=== PATIENT | female | born 1975 | race Caucasian/White ===

== ENCOUNTER 2019-10-13 10:39 | Emergency (ER) | payer OTHER, SELFPAY ==
[2019-10-13 10:50] VITALS: BP 149/91; PULSE 107; RESP 16; TEMP 36.5; O2SAT 98
--- NOTE | 2019-10-13 10:56 | ED.URI ---
HPI - URI/Sore Throat General Chief Complaint: Upper Respiratory Infection Stated Complaint: pos sinus infection Time Seen by Provider: 10/13/19 10:42 Source: patient Mode of arrival: ambulatory Limitations: no limitations History of Present Illness HPI Narrative: 44-year-old female presents to urgent care with complaints of sinus pressure, nasal congestion, nonproductive cough and bilateral ear pressure for the past week. Patient takes Mirna and Flonase daily due to history of allergies. Patient also has been taking [id number] sinus tablets with little relief. Patient denies sick contacts. Patient denies recent travel. Patient is a non-smoker. Patient denies fever, bites, chills, nausea, vomiting, diarrhea, shortness of breath or wheezing. MD elicited complaint: cough, nasal congestion and sinus pain Onset (ago): week(s) (1) Severity: mild Able to tolerate fluids by mouth: Yes Exacerbating factors: nothing Relieving factors: nothing Associated symptoms: nasal congestion, cough and ear pain Treatments prior to arrival: cold medicine Related Data Home Medications Medication Instructions Recorded Confirmed alprazolam 0.25 mg PO BID 10/13/19 10/13/19 fluoxetine 20 mg PO DAILY 10/13/19 10/13/19 Allergies Allergy/AdvReac Type Severity Reaction Status Date / Time No Known Allergies Allergy Verified 10/13/19 10:44 Review of Systems Constitutional: Constitutional: Denies chills, Denies fever(s) and Denies weakness ENT: Denies dysphagia, Denies vertigo, Denies dizziness, Denies epistaxis, Reports nasal congestion and Denies sore throat Cardiovascular: Cardiovascular: Denies chest pain, Denies rapid heart rate, Denies radiating jaw, neck or arm pain and Denies slow heart rate Respiratory: Respiratory: Denies chest congestion, Reports cough, Denies dyspnea and Denies wheezing Gastrointestinal: Gastrointestinal: Denies abdominal pain, Denies bloating, Denies constipation, Denies diarrhea, Denies nausea and Denies vomiting Integumentary/Breasts: Skin/Breast: Denies rash Neurologic: Denies vertigo, Denies focal weakness and Denies numbness PMFSH Past Medical History Medical History (Updated 10/13/19 @ 11:03 by Tiff Calderón APRN) Allergies Social History Social History (Updated 10/13/19 @ 10:58 by Tiff Calderón APRN) Smoking status: Never smoker Gender identity (if verbalized by the patient): Female Exam Const: General: healthy appearing, no acute distress and alert Orientation/consciousness: patient oriented x3 HENMT: Head: normal to inspection Ears: external ears normal General nose exam: Normal external nose present Face and sinus: sinus tenderness frontal Mouth: Yes lip normal, Yes moist mucous membranes and Yes Abnormal oral and palatal mucosa present Throat: posterior oropharynx normal and uvula midline Other: nasal congestion noted -- left is worse than right. Eyes: Pupils: Equal, round and reactive pupils present Neck: Neck: normal visual inspection Resp: Effort & Inspection: normal respiratory effort, not labored and not tachypneic Auscultation: clear to auscultation bilaterally, no crackles and no wheezes Cardio: Rate: regular rate, not bradycardic and not tachycardic Rhythm: regular rhythm and regular rhythm Skin: General skin exam: normal color, no jaundice and no pallor Rashes: no rashes Neuro: General: patient oriented x3, moves all extremities and no meningeal signs Extrem: General: normal to inspection Psych: Appearance: grossly normal and well kempt Mental Status: mental status grossly normal Thought content: Yes Normal thought content present Course Vital Signs Vital signs: Vital Signs Temperature 36.5 C 10/13/19 10:50 Pulse Rate 107 H 10/13/19 10:50 Respiratory Rate 16 10/13/19 10:50 Blood Pressure 149/91 H 10/13/19 10:50 Pulse Oximetry 98 10/13/19 10:50 Temperature 36.5 C 10/13/19 10:50 Pulse Rate 107 H 10/13/19 10:50 Re
[2019-10-13 11:12] VITALS: BP 130/80
== END 2019-10-13 11:08 | disposition home or self-care (01) ==
PROVIDERS: Emergency Provider Nurse Practitioner Family; PCP Nurse Practitioner Family
DX: J01.90 Acute sinusitis, unspecified (principal)
CPT/HCPCS: 99213; G0463

== ENCOUNTER 2021-01-26 16:09 | Emergency (ER) | payer OTHER, SELFPAY ==
[2021-01-26 16:25] VITALS: BP 127/80; PULSE 95; RESP 16; TEMP 36.7; O2SAT 100
--- NOTE | 2021-01-26 17:21 | ED.URI ---
HPI - URI/Sore Throat General Chief Complaint: Upper Respiratory Infection Stated Complaint: Sinus Source: patient and RN notes reviewed Limitations: no limitations History of Present Illness HPI Narrative: The obese vaccinated patient, a non-smoker/nondrinker, presents with a shorter half week history of frontal sinus headache and congestion. Symptoms are mild despite OTC preps like Flonase; she has had tonsillectomy in the past. No fever, sore throat, earache; no loss of taste/smell, CP, vomiting/diarrhea, S OB; Related Data Home Medications Medication Instructions Recorded Confirmed alprazolam 0.25 mg PO BID 10/13/19 01/26/21 fluoxetine 20 mg PO DAILY 10/13/19 01/26/21 norgestimate-ethinyl estradiol 1 tablet PO DAILY 01/26/21 01/26/21 [Zuleykaa (28)] Allergies Allergy/AdvReac Type Severity Reaction Status Date / Time No Known Allergies Allergy Verified 01/26/21 16:45 Review of Systems Review of Systems: General/Constitutional: No weight loss,fever Eyes: N0: Redness,discharge Ears/Nose/Throat: No: Epistaxis,ear discharge Respiratory: Denies: Hemoptysis Gastrointestinal: No Vomiting, Bleeding-rectal Skin: No Lumps, eruption Neurologic: No Focal Weakness,Sz Hematologic: Denies: Petechiae/Purpura Psychiatric: No: Suicida ideationl All Other Systems: Reviewed and Negative PMFSH Past Medical History Medical History (Updated 01/26/21 @ 18:20 by Rashad Herring MD) Allergies Social History Social History (Updated 10/13/19 @ 10:58 by Tiff Calderón APRN) Smoking status: Never smoker Gender identity (if verbalized by the patient): Female Comments At time of signature, agree with nursing past medical, surgical, social and family history. There is no relevant family history pertinent to the presenting complaint Exam Narrative: General Appearance: Well appearing, obese/well nourished EYE: PERRLA, Conjunctiva clear Ears: Auditory canal normal, TM normal Nose: Rhinorrhea, Mucousal erythema Mouth/Throat: MM moist, Uvula midline, s/p T&A , Pharyngeal erythema Neck: Supple, No adenopathy Respiratory: No respiratory distress, Breath sounds equal, Clear to auscultation Cardiovascular: RRR, No JVD Musculoskeletal: Non tender, Normal strength Skin: Warm, Dry Neurological: A&O x3, CN II-XII intact Psychiatric: Normal mood, Normal affect Course Vital Signs Vital signs: Vital Signs Temperature 98.0 F 01/26/21 16:25 Pulse Rate 95 01/26/21 16:25 Respiratory Rate 16 01/26/21 16:25 Blood Pressure 127/80 01/26/21 16:25 Pulse Oximetry 100 01/26/21 16:25 Temperature 98.0 F 01/26/21 16:25 Pulse Rate 95 01/26/21 16:25 Respiratory Rate 16 01/26/21 16:25 Blood Pressure 127/80 01/26/21 16:25 Pulse Oximetry 100 01/26/21 16:25 Discharge Plan Discharge Clinical Impression: Sinus headache Patient Disposition: Home, Self-Care Condition: Stable Instructions: Antibiotic Form, Sinusitis (ED) Additional Instructions: You may use OTC preparations topical sprays [Afrin, Flonase], antihistamines [Claritin, Mirna] etc Prescriptions: New azelastine 137 mcg (0.1 %) aerosol,spray 137 mcg NASAL Q12H Qty: 30 RF: 0 cefuroxime axetil 500 mg tablet 500 mg PO Q12H Qty: 20 RF: 0 No Action norgestimate-ethinyl estradiol [TriNessa (28)] 0.18/0.215/0.25 mg-35 mcg (28) Tablet 1 tablet PO DAILY RF: 0 alprazolam 0.25 mg Tablet 0.25 mg PO BID RF: 0 fluoxetine 20 mg Tablet 20 mg PO DAILY RF: 0 Other Ambulatory Orders: SARS-CoV-2 RNA, Qual RT-PCR (Routine) Location: Determined by Patient Ordered By: Rashad Herring Follow-up/Referrals: Zulay,Khushi Anderson, WARNING COORDINATION METEOROLOGIST-BC [Primary Care Provider] -
== END 2021-01-26 17:28 | disposition home or self-care (01) ==
PROVIDERS: Emergency Provider Emergency Medicine; PCP Nurse Practitioner Family
DX: J34.89 Other specified disorders of nose and nasal sinuses (principal); R51.9 Headache, unspecified; F41.9 Anxiety disorder, unspecified; F32.9 Major depressive disorder, single episode, unspecified
CPT/HCPCS: 99213; G0463

== ENCOUNTER → 2021-01-29 00:38 | Outpatient (CLI) | payer OTHER, SELFPAY ==
[2021-01-29 20:10] LABS: SARS-CoV-2 RNA PCR Negative
== END ==
PROVIDERS: PCP Nurse Practitioner Family; Visit Provider Emergency Medicine
DX: J32.9 Chronic sinusitis, unspecified (principal); Z20.822 Contact with and (suspected) exposure to COVID-19
CPT/HCPCS: C9803; U0003; U0005